=== PATIENT | male | born 1960 | race Caucasian/White ===

== ENCOUNTER 2017-01-20 18:09 | Emergency (ER) | payer BC ==
--- NOTE | 2017-01-20 18:43 | EDPHY ---
H & P Stated Complaint: bph/urinary retention Time Seen by Provider: 01/20/17 18:21 HPI/ROS: CHIEF COMPLAINT: Urinary retention HISTORY OF PRESENT ILLNESS: This is a 56-year-old male presenting to the emergency room complaining of urinary retention onset around 1300. 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 Patient stated he has noted over the past 2 weeks that he has had any increase in his BPH symptoms, but over the past 2 days it has been crease in the worse with only a dribble and urinary urgency. Patient states he had seen his urologist 4 months ago. Denies any chest pain or shortness of breath no other complaints REVIEW OF SYSTEMS: Constitutional: No fever, no chills. Eyes: No visual changes. ENT: No sore throat Respiratory: No cough, no shortness of breath. Cardiac: No chest pain. Gastrointestinal: Abdominal cramping, distension Genitourinary: No hematuria. Urinary retention, urinary urgency Musculoskeletal: No back pain. Skin: No rashes. Neurological: No headache. Source: Patient - Personal History Current Tetanus/Diphtheria Vaccine: Yes - Medical/Surgical History Hx Asthma: Yes Hx Chronic Respiratory Disease: No Hx Diabetes: No Hx Cardiac Disease: No Hx Renal Disease: No Hx Cirrhosis: No Hx Alcoholism: No Hx HIV/AIDS: No Hx Splenectomy or Spleen Trauma: No Other PMH: medical HTN, GERD, Grief/depression, bph. surgery Hemorroidectomy , tonsillectomy, right thumb tendon repair, benign tumor removal from right forearm,TURBT - Social History Smoking Status: Never smoked - Physical Exam Exam: General Appearance: Alert, no distress. Eyes: Pupils equal and round no pallor or injection. ENT, Mouth: Mucous membranes moist. Respiratory: There are no retractions, lungs are clear to auscultation. Cardiovascular: Regular rate and rhythm. Gastrointestinal: Abdomen is soft with abdominal distention mild tenderness on palpation, no masses, bowel sounds normal. Neurological: No focal deficits, ambulatory without difficulty Skin: Warm and dry, no rashes. Musculoskeletal: Neck is supple nontender. Extremities: symmetrical, full range of motion. Psychiatric: Patient is oriented X 3, there is no agitation. Constitutional: Initial Vital Signs Temperature (C) 36.6 C 01/20/17 18:14 Heart Rate 70 01/20/17 18:14 Respiratory Rate 17 01/20/17 18:14 Blood Pressure 144/85 H 01/20/17 18:14 O2 Sat (%) 96 01/20/17 18:14 O2 Delivery Mode Room Air Allergies/Adverse Reactions: codeine Allergy (Verified 01/20/17 18:12) Home Medications: Medication Instructions Recorded Lorazepam 0 mg PO 01/18/12 Valsartan [Diovan] 320 mg PO 01/18/12 buPROPion [Wellbutrin (RX)] 0 mg PO 01/18/12 Albuterol [Proventil Inhaler HFA 2 puffs IH Q4 07/28/14 (RX)] Bupropion HCl 75 mg PO 07/28/14 clonIDINE [Catapres (RX)] 0.1 mg PO 07/28/14 Flomax 01/20/17 Uribel Capsule 01/20/17 Medical Decision Making ED Course/Re-evaluation: Discussed plan of care: Bladder scan 220ml @ 1845 1900: Discussed Tejada catheter with leg bag with patient. Will consult with urologist 1930: 400ml output with Tejada catheter. Urology paged 1944: Spoke with Dr. Harvey with [facility], patient to call their clinic in the morning for follow-up. Patient sent home with Tejada catheter and leg bag 1999: Discussed discharge instructions with patient, patient agreed with plan Differential Diagnosis: Differential diagnosis considered but not limited to pyelonephritis, UTI and renal stone - Data Points Laboratory Results: 01/20/17 19:25 Urine Color BLUE Urine Appearance CLEAR Urine pH 5.0 (5.0-7.5) Ur Specific [place] 1.006 (1.002-1.030) Urine Protein NEGATIVE (NEGATIVE) Urine Ketones NEGATIVE (NEGATIVE) Urine Blood NEGATIVE (NEGATIVE) Urine Nitrate NEGATIVE (NEGATIVE) Urine Bilirubin NEGATIVE (NEGATIVE) Urine Urobilinogen NEGATIVE EU EU (0.2-1.0) Ur Leukocyte Esterase NEGATIVE (NEGATIVE) Urine Glucose NEGATIVE (NEGATIVE) Departure - Departure Disposition: Home, Routine, Self-Care Clinical Impression: Urinary retention due to benign prostatic hyperplasia Condition: Good Instructions: Urinary Retention in Men (ED) Additional Instructions: Discussed discharge instructions with patient 1. Call Dr. Carlson office with Urology tomorrow to get in for a follow-up appointment 2. Leave Tejada catheter in until evaluation with Urology 3. Take all your meds as prescribed for BPH 4. If at any point time symptoms worsen, such as: Unable to urinating with catheter, gross blood blood clots in the urine bag abdominal pain return to the emergency department Referrals: Dante Pyle MD [Primary Care Provider] - As per Instructions Elie Carlson MD [Medical Doctor] - As per Instructions
[2017-01-20 19:40] LABS: COLOR BLUE; LEUKOCYTE ESTERASE,URINE NEGATIVE (NEGATIVE); NITRITE,URINE NEGATIVE (NEGATIVE)
[2017-01-20 21:26] VITALS: BP 148/97; PULSE 74; RESP 18; TEMP 98.1; O2SAT 94
== END 2017-01-20 21:26 | disposition home or self-care (01) ==
PROC: 0T9B70Z Drainage of Bladder with Drainage Device, Via Natural or Artificial Opening (ICD-10-PCS; principal; 2017-01-20)
DX: N40.0 Benign prostatic hyperplasia without lower urinary tract symptoms (principal); J45.909 Unspecified asthma, uncomplicated; I10 Essential (primary) hypertension